=== PATIENT | female | born 1980 | race Caucasian/White ===

== ENCOUNTER 2024-01-17 12:31 | Outpatient (CLI) | payer BC, OTHER, SELFPAY ==
--- NOTE | ~2024-01-17 | MM_ITS ---
EXAMINATION: MM screening cas BI w marina HISTORY: Screening mammogram TECHNIQUE: Craniocaudal and mediolateral oblique 3-D tomosynthesis images were obtained and synthetic 2-D images were generated. CAD analysis was submitted and interpreted. COMPARISON: No prior mammogram is available for comparison at this institution. BREAST PARENCHYMAL COMPOSITION:Not Dense. There are scattered areas of fibroglandular density. FINDINGS: No suspicious mass, calcification, or architectural distortion are identified in either alicia ast to suggest malignancy. There has been no suspicious interval change. IMPRESSION: No mammographic evidence of malignancy. Recommend routine screening mammography in one year. BI-RADS Category 1: Negative Reviewed, dictated and finalized at location .
== END 2024-01-17 12:32 ==
DX: Z12.31 Encounter for screening mammogram for malignant neoplasm of breast (principal)
CPT/HCPCS: 77063; 77067

== ENCOUNTER 2024-01-22 08:23 | Outpatient (CLI) | payer BC, OTHER, SELFPAY ==
--- NOTE | ~2024-01-22 | MR_ITS ---
EXAMINATION: MR foot LT wo con DATE: 01/22/2024 09:17 INDICATION: Left foot pain. TECHNIQUE: Magnetic resonance imaging (MRI) of the left foot was performed without intravenous contra st. COMPARISON: None. FINDINGS: There is a skin marker dorsal to the fourth and fifth metatarsophalangeal joints. Bone alig nment is normal. No fracture. There is mild osteoarthritis of first metatarsophalangeal joint and keyla e of the interphalangeal joints. Lisfranc ligament is normal. The musculature is normal. IMPRESSION: 1. Mild polyarticular osteoarthritis. Reviewed, dictated and finalized at location A.
== END 2024-01-22 08:24 ==
DX: M19.072 Primary osteoarthritis, left ankle and foot (principal)
CPT/HCPCS: 73718